=== PATIENT | female | born 1990 | race Caucasian/White ===

== ENCOUNTER 2018-11-21 02:49 | Emergency (ER) | payer OTHER ==
[2018-11-21 02:56] VITALS: BP 118/58
--- NOTE | 2018-11-21 03:17 | EDPHY ---
H & P Stated Complaint: lower lip laceration from tooth that hit counter. no loc Time Seen by Provider: 11/21/18 03:11 HPI/ROS: Chief Complaint: Lip laceration HPI: 28-year-old woman had a mechanical trip and fall coming back from the bathroom to her bedroom this evening. She struck her lower lip on the bedside table. She sustained a laceration inner lip that went through. She believes she struck her on her lower teeth. She did not have a loss of consciousness. Says her bite in jaw feel normal. She is up-to-date in her tetanus. No neck pain. No numbness or weakness. ROS: 10 systems were reviewed and were negative except those elements noted in the HPI. PMH: Denies Social History: No smoking, no alcohol, no recreational drug use Family History: non-contributory Physical Exam: Gen: Awake, Alert, Airway Intact HEENT: Head: Atraumatic Eyes: PERRLA, EOMI Nose: No epistaxis Mouth: Normal dentition, T 30 normal alignment. No loose teeth. Patient has a 7 mm horizontal laceration on the inner lower lip. There is a very tiny 2 mm through and through laceration below the vermilion border on the outer lip. There is no active bleeding. Neither the lacerations are suturable. Face: No deformity Neck: non-tender, no stepoff, Full ROM without pain Ext: atramatic, full ROM Skin: no rash Neuro: CN II-XII intact, Strength 5/5 in all extremities, sensation intact in all extremities - Personal History LMP (Females 10-55): Now Current Tetanus/Diphtheria Vaccine: Yes Current Tetanus Diphtheria and Acellular Pertussis (TDAP): Yes - Medical/Surgical History Hx Asthma: No Hx Chronic Respiratory Disease: No Hx Diabetes: No Hx Cardiac Disease: No Hx Renal Disease: No Hx Cirrhosis: No Hx Alcoholism: No Hx HIV/AIDS: No Hx Splenectomy or Spleen Trauma: No Other PMH: denies - Social History Smoking Status: Never smoked Constitutional: Initial Vital Signs Temperature (C) 36.9 C 11/21/18 02:53 Heart Rate 76 11/21/18 02:53 Respiratory Rate 18 11/21/18 02:53 Blood Pressure 118/58 L 11/21/18 02:53 O2 Sat (%) 100 11/21/18 02:53 O2 Delivery Mode Room Air Allergies/Adverse Reactions: No Known Allergies Allergy (Unverified 11/21/18 02:55) Home Medications: Medication Instructions Recorded Ofloxacin 0.3% [Ocuflox 0.3% (RX)] 0 drops EACHEYE 11/21/18 prednisoLONE ACET 1% [Pred Forte 1 drops EACHEYE 11/21/18 1% (*)] Medical Decision Making ED Course/Re-evaluation: Patient has a nonsuturable laceration on her lower lip. Is even unclear whether it is truly through and through. She has been reassured. Will discharge with follow-up with primary care physician for any concerns. Departure - Departure Disposition: Home, Routine, Self-Care Clinical Impression: Lip laceration Condition: Good Instructions: Laceration Without Closure (ED) Additional Instructions: Follow up with primary care physician for any concerns. Referrals: NONE *PRIMARY CARE P,. [Primary Care Provider] - As per Instructions
== END 2018-11-21 03:25 | disposition home or self-care (01) ==
DX: S01.511A Laceration without foreign body of lip, initial encounter (principal); W01.190A Fall on same level from slipping, tripping and stumbling with subsequent striking against furniture, initial encounter; Y92.003 Bedroom of unspecified non-institutional (private) residence as the place of occurrence of the external cause